=== PATIENT | female | born 1940 | race Caucasian/White ===

== ENCOUNTER 2021-01-29 23:00 | Inpatient (IN) | payer OTHER, MEDICARE ==
[2021-01-30] MEDS ORDERED: Fentanyl 100 MCG/2 ML VIAL ONE (01:22)
[2021-01-30] MEDS ORDERED: Ondansetron PF 4 MG/2 ML Vial ONE (01:22)
[2021-01-30 01:44] LABS: #Monocytes 0.8 thou/uL (0.11-0.59); #Neutrophils 8.4 thou/uL (1.40-6.50); %Basophils 0.2 % (0.0-1.0); %Eosinophils 0.4 % (0.0-10.0); %Neutrophils 81.3 % (42.0-75.0); Hemoglobin 17.2 g/dL (12.0-16.0); Mean Corpuscular HGB CONC 34.1 g/dL (32.0-36.0); Mean Corpuscular Hemoglobin 31.6 pg (27.0-31.0); Mean Corpuscular Volume 92.7 fL (78.0-98.0); Platelet Count 185 thou/uL (130-400); RBC Distribution Width 12.6 % (11.5-14.5); Red Blood Cell (RBC) Count 5.45 mill/uL (4.20-5.40); White Blood Cell (WBC) Count 10.3 thou/uL (4.8-10.8)
[2021-01-30 02:08] LABS: ALT (SGPT) 15 U/L (8-55); AST (SGOT) 29 U/L (5-34); Albumin 4.2 g/dL (3.4-4.8); Alkaline Phosphatase 159 U/L (40-110); Anion Gap 17 mmol/L (10-20); BUN (Urea Nitrogen) 14 mg/dL (9.8-20.1); Bilirubin, Total 1.5 mg/dL (0.2-1.2); Calc. Creatinine Clearance 0 mL/min (70-130); Calcium 9.3 mg/dL (7.8-10.44); Carbon Dioxide 21 mmol/L (23-31); Chloride 101 mmol/L (98-107); Globulin 3.6 g/dL (2.4-3.5); Glucose 126 mg/dL (83-110); Potassium 4.2 mmol/L (3.5-5.1); Protein, Total 7.8 g/dL (5.8-8.1); Sodium 135 mmol/L (136-145)
[2021-01-30 03:06] VITALS: BMI 24.3
[2021-01-30] MEDS ORDERED: Cyclobenzaprine 10 MG TAB PO PRN ×2 (04:03→08:00)
[2021-01-30] MEDS ORDERED: traMADol HCl 50 MG TAB PO PRN (04:04)
[2021-01-30] MEDS ORDERED: Ondansetron PF 4 MG/2 ML Vial IVP PRN (04:15)
[2021-01-30] MEDS ORDERED: Acetaminophen 325 MG TAB PO PRN (04:15)
[2021-01-30] MEDS ORDERED: Ondansetron ODT 4 MG TAB SL PRN (04:15)
[2021-01-30] MEDS ORDERED: Dextrose 50% Abboject 50 ML SYRINGE SLOW IVP PRN (07:07)
[2021-01-30] MEDS ORDERED: Dextrose 5% in Water 1,000 ML IV PRN (07:07)
[2021-01-30] MEDS ORDERED: hydrALAZINE 20 MG/ML VIAL SLOW IVP PRN (07:07)
[2021-01-30] MEDS ORDERED: Sodium Chloride 0.9% 1,000 ML IV SCH (07:15)
[2021-01-30] MEDS ORDERED: Rib Fracture Protocol PO SCH (07:15)
[2021-01-30] MEDS ORDERED: Polyethylene Glycol 3350 17 GM Packet PO SCH (09:00)
[2021-01-30] MEDS: Gabapentin 100 MG CAP PO SCH ×3 (09:03→23:24)
[2021-01-30] MEDS: Famotidine 20 MG TAB PO SCH ×2 (09:03→23:24)
[2021-01-30] MEDS: Senokot S 8.6-50 MG TAB PO SCH (09:04)
[2021-01-30 11:38] LABS: SARS-CoV-2 PCR by NAA Not Detected (NotDetected)
[2021-01-30] MEDS: Acetaminophen 500 MG TAB PO SCH ×3 (13:27→23:26)
[2021-01-30] MEDS: traMADol HCl 50 MG TAB PO SCH ×3 (13:28→23:27)
[2021-01-30] MEDS: Ibuprofen 600 MG TAB PO SCH ×2 (15:10→23:25)
[2021-01-31] MEDS: Senokot S 8.6-50 MG TAB PO SCH ×2 (00:02→08:57)
[2021-01-31] MEDS: Ibuprofen 600 MG TAB PO SCH (06:24)
[2021-01-31] MEDS: Acetaminophen 500 MG TAB PO SCH ×2 (06:24→11:58)
[2021-01-31] MEDS: traMADol HCl 50 MG TAB PO SCH ×2 (06:25→11:57)
[2021-01-31] MEDS: Gabapentin 100 MG CAP PO SCH (08:57)
[2021-01-31] MEDS: Famotidine 20 MG TAB PO SCH (08:57)
[2021-01-31 11:34] VITALS: BP 122/71; TEMP 97.6
== END 2021-01-31 13:55 | DRG 86 ==
LOC: ERS 23:00 → SJJU 01-30 01:28 → OBSVTOIN 01-30 16:46
PROVIDERS: ADMIT Surgery; ATTEND Surgery
DX: S02.85XA Fracture of orbit, unspecified, initial encounter for closed fracture (principal); S22.42XA Multiple fractures of ribs, left side, initial encounter for closed fracture; Z20.822 Contact with and (suspected) exposure to COVID-19; W01.190A Fall on same level from slipping, tripping and stumbling with subsequent striking against furniture, initial encounter; I10 Essential (primary) hypertension; E03.9 Hypothyroidism, unspecified; K58.9 Irritable bowel syndrome, unspecified; N32.81 Overactive bladder; F41.9 Anxiety disorder, unspecified; M81.0 Age-related osteoporosis without current pathological fracture; Z90.49 Acquired absence of other specified parts of digestive tract; Z90.710 Acquired absence of both cervix and uterus
CPT/HCPCS: 70450; 71250; 72125; 80053; 85025; 94640; 96374; 96375; G0378; J2405; J3010; J7620; U0003; U0005

== ENCOUNTER 2021-02-10 14:12 | Outpatient (CLI) | payer MEDICARE | END 2021-02-10 14:13 | disposition home or self-care (01) | LOC: BICRAD 14:12 | PROVIDERS: ATTEND Surgery | DX: S22.49XA Multiple fractures of ribs, unspecified side, initial encounter for closed fracture (principal); S22.009A Unspecified fracture of unspecified thoracic vertebra, initial encounter for closed fracture; M43.9 Deforming dorsopathy, unspecified | CPT/HCPCS: 71046 ==

== ENCOUNTER 2021-08-06 13:45 | Outpatient (CLI) | payer MEDICARE | END 2021-08-06 13:46 | disposition home or self-care (01) | LOC: ULT 13:45 | PROVIDERS: ATTEND Family Medicine | DX: I73.9 Peripheral vascular disease, unspecified (principal); R60.0 Localized edema | CPT/HCPCS: 93923 ==

== ENCOUNTER 2022-01-07 10:13 | Emergency (ER) | payer MEDICARE ==
[2022-01-07 11:05] LABS: Bilirubin Negative (Negative); Blood, Urine Negative (Negative); Glucose, Urine (Dipstick) Negative (Negative); Ketone, Urine 15 mg/dL (Negative); Leukocyte Negative (Negative); Nitrite Negative (Negative); Protein, Urine (Dipstick) Trace mg/dL (Neg-Trace); Specific Gravity, Urine 1.025 (1.005-1.030); pH, Urine 5.5 (5.0-9.0)
[2022-01-07 11:23] LABS: #Lymphocytes 0.9 thou/uL (1.20-3.40); #Monocytes 1.2 thou/uL (0.11-0.59); #Neutrophils 8.3 thou/uL (1.40-6.50); %Basophils 0.3 % (0.0-1.0); %Eosinophils 0.4 % (0.0-10.0); %Lymphocytes 8.8 % (21.0-51.0); %Monocytes 11.2 % (0.0-10.0); %Neutrophils 79.3 % (42.0-75.0); Hemoglobin 18.5 g/dL (12.0-16.0); Mean Corpuscular Hemoglobin 31.7 pg (27.0-31.0); Mean Corpuscular Volume 95.8 fL (78.0-98.0); Mean Platelet Volume 8.3 fL (7.4-10.4); Platelet Count 231 thou/uL (130-400); RBC Distribution Width 11.9 % (11.5-14.5); Red Blood Cell (RBC) Count 5.83 mill/uL (4.20-5.40); White Blood Cell (WBC) Count 10.4 thou/uL (4.8-10.8)
[2022-01-07 11:26] LABS: Clarity Clear (Clear)
[2022-01-07] MEDS ORDERED: Ketorolac Tromethamine 30 MG/ML VIAL ONE (11:35)
[2022-01-07 11:44] LABS: ALT (SGPT) 8 U/L (8-55); AST (SGOT) 15 U/L (5-34); Alkaline Phosphatase 107 U/L (40-110); Anion Gap 15 mmol/L (10-20); BUN (Urea Nitrogen) 13 mg/dL (9.8-20.1); Bilirubin, Total 2.3 mg/dL (0.2-1.2); Calc. Creatinine Clearance 0 mL/min (70-130); Calcium 8.9 mg/dL (7.8-10.44); Carbon Dioxide 22 mmol/L (23-31); Chloride 102 mmol/L (98-107); Globulin 3.1 g/dL (2.4-3.5); Glucose 113 mg/dL (83-110); Potassium 4.2 mmol/L (3.5-5.1); Protein, Total 7.1 g/dL (5.8-8.1); Sodium 135 mmol/L (136-145)
[2022-01-07] MEDS ORDERED: HYDROcodone/Acetaminophen 5/325 mg Tablet ONE (13:48)
== END 2022-01-07 14:00 | disposition home or self-care (01) ==
LOC: ERS 10:13
DX: M48.56XA Collapsed vertebra, not elsewhere classified, lumbar region, initial encounter for fracture (principal); I10 Essential (primary) hypertension; E03.9 Hypothyroidism, unspecified; M81.0 Age-related osteoporosis without current pathological fracture
CPT/HCPCS: 36415; 51701; 74176; 80053; 81003; 83605; 83690; 85025; 96374; J1885

== ENCOUNTER 2022-01-22 14:16 | Outpatient (CLI) | payer MEDICARE | END 2022-01-22 14:17 | disposition home or self-care (01) | LOC: BICRAD 14:16 | PROVIDERS: ATTEND Family Medicine | DX: S32.019G Unspecified fracture of first lumbar vertebra, subsequent encounter for fracture with delayed healing (principal); S32.029G Unspecified fracture of second lumbar vertebra, subsequent encounter for fracture with delayed healing; S32.039G Unspecified fracture of third lumbar vertebra, subsequent encounter for fracture with delayed healing; S22.059A Unspecified fracture of T5-T6 vertebra, initial encounter for closed fracture; S22.069A Unspecified fracture of T7-T8 vertebra, initial encounter for closed fracture; S22.079A Unspecified fracture of T9-T10 vertebra, initial encounter for closed fracture; S22.089A Unspecified fracture of T11-T12 vertebra, initial encounter for closed fracture; M43.8X4 Other specified deforming dorsopathies, thoracic region; M43.8X6 Other specified deforming dorsopathies, lumbar region | CPT/HCPCS: 72072; 72100 ==

== ENCOUNTER 2022-02-17 16:47 | Outpatient (CLI) | payer MEDICARE | END 2022-02-17 16:48 | disposition home or self-care (01) | LOC: RAD 16:47 | PROVIDERS: ATTEND Family Medicine | DX: M25.512 Pain in left shoulder (principal) ==

== ENCOUNTER 2022-04-29 10:43 | Inpatient (IN) | payer MEDICARE, MEDICAID ==
[2022-04-29] MEDS ORDERED: Aspirin Chewable 81 MG TAB ONE (11:25)
[2022-04-29 11:34] LABS: #Basophils 0.1 thou/uL (0.0-0.2); #Eosinphils 0.1 thou/uL (0.0-0.7); #Lymphocytes 1.6 thou/uL (1.20-3.40); #Monocytes 0.8 thou/uL (0.11-0.59); #Neutrophils 4.6 thou/uL (1.40-6.50); %Basophils 0.8 % (0.0-1.0); %Eosinophils 0.8 % (0.0-10.0); %Lymphocytes 22.7 % (21.0-51.0); %Neutrophils 64.7 % (42.0-75.0); Hemoglobin 17.4 g/dL (12.0-16.0); Mean Corpuscular HGB CONC 32.5 g/dL (32.0-36.0); Mean Corpuscular Hemoglobin 31.4 pg (27.0-31.0); Mean Corpuscular Volume 96.8 fL (78.0-98.0); Mean Platelet Volume 9.2 fL (7.4-10.4); Platelet Count 183 thou/uL (130-400); RBC Distribution Width 11.6 % (11.5-14.5); Red Blood Cell (RBC) Count 5.52 mill/uL (4.20-5.40); White Blood Cell (WBC) Count 7.1 thou/uL (4.8-10.8)
[2022-04-29 11:37] LABS: Prothrombin Time 13.2 sec (12.0-14.7)
[2022-04-29 11:38] LABS: PTT 29.8 sec (22.9-36.1)
[2022-04-29 11:47] LABS: ALT (SGPT) 10 U/L (8-55); AST (SGOT) 21 U/L (5-34); Albumin 4.2 g/dL (3.4-4.8); Alkaline Phosphatase 100 U/L (40-110); Anion Gap 17 mmol/L (10-20); BUN (Urea Nitrogen) 12 mg/dL (9.8-20.1); Bilirubin, Total 1.6 mg/dL (0.2-1.2); Calc. Creatinine Clearance 0 mL/min (70-130); Calcium 9.3 mg/dL (7.8-10.44); Carbon Dioxide 22 mmol/L (23-31); Chloride 98 mmol/L (98-107); Estimated GFR 78; Globulin 2.9 g/dL (2.4-3.5); Glucose 122 mg/dL (83-110); Potassium 3.9 mmol/L (3.5-5.1); Protein, Total 7.1 g/dL (5.8-8.1); Sodium 133 mmol/L (136-145)
[2022-04-29] MEDS ORDERED: Communication Order-Pharmacy FS PRN (13:22)
[2022-04-29 14:12] LABS: SARS-CoV-2 NAA Rapid Test Not Detected (NotDetected)
[2022-04-29 14:23] LABS: Bacteria/HPF None Seen HPF (None Seen); Bilirubin Negative (Negative); Blood, Urine Negative (Negative); Clarity Clear (Clear); Glucose, Urine (Dipstick) Normal (Negative); Ketone, Urine Negative (Negative); Leukocyte 25 Leu/uL (Negative); Nitrite Negative (Negative); Protein, Urine (Dipstick) Negative (Neg-Trace); RBC/HPF 0-3 HPF (0-3); Specific Gravity, Urine 1.007 (1.002-1.036); Squamous Epithelial None Seen HPF (0-3); Urobilinogen Normal mg/dL (Less than 2); WBC/HPF 0-3 HPF (0-3); pH, Urine 5.5 (5.0-9.0)
[2022-04-29] MEDS ORDERED: Enoxaparin Sodium 60 MG/0.6 ML SYRINGE SC SCH (15:30)
[2022-04-29] MEDS ORDERED: Enoxaparin Sodium 60 MG/0.6 ML SYRINGE ONE (17:04)
[2022-04-29] MEDS ORDERED: Ondansetron ODT 4 MG TAB SL PRN (19:00)
[2022-04-29] MEDS ORDERED: Ondansetron PF 4 MG/2 ML Vial IVP PRN (19:00)
[2022-04-29 19:54] VITALS: BMI 29.9
[2022-04-29] MEDS: Enoxaparin Sodium 60 MG/0.6 ML SYRINGE SC SCH (21:41)
[2022-04-29] MEDS: Atorvastatin Calcium 40 MG TAB PO SCH (21:41)
[2022-04-30] MEDS ORDERED: Nystatin Powder 15 GM BOT TOP PRN (00:37)
[2022-04-30] MEDS ORDERED: Metoprolol Tartrate 5 MG/5 ML VIAL IVP PRN (02:35)
[2022-04-30 05:36] LABS: Cardiac Risk 2.6 (Less than 4.5)
[2022-04-30] MEDS: Levothyroxine Sodium 25 MCG TAB PO SCH (05:53)
[2022-04-30] MEDS: Enoxaparin Sodium 60 MG/0.6 ML SYRINGE SC SCH ×2 (08:31→21:47)
[2022-04-30] MEDS: Furosemide 20 MG TAB PO SCH (08:33)
[2022-04-30] MEDS ORDERED: Enoxaparin Sodium 60 MG/0.6 ML SYRINGE SC SCH (09:00)
[2022-04-30] MEDS: Acetaminophen 325 MG TAB PO PRN ×2 (12:04→21:47)
[2022-04-30] MEDS: Metoprolol Tartrate 25 MG TAB PO SCH (21:47)
[2022-04-30] MEDS: Atorvastatin Calcium 40 MG TAB PO SCH (21:47)
[2022-05-01] MEDS: Levothyroxine Sodium 25 MCG TAB PO SCH (06:05)
[2022-05-01] MEDS: Furosemide 20 MG TAB PO SCH (10:12)
[2022-05-01] MEDS: Metoprolol Tartrate 25 MG TAB PO SCH ×2 (10:13→19:58)
[2022-05-01] MEDS: Enoxaparin Sodium 60 MG/0.6 ML SYRINGE SC SCH (10:13)
[2022-05-01] MEDS: Aspirin Chewable 81 MG TAB PO SCH (10:14)
[2022-05-01] MEDS: Acetaminophen 325 MG TAB PO PRN (19:58)
[2022-05-01] MEDS: Atorvastatin Calcium 40 MG TAB PO SCH (19:58)
[2022-05-01] MEDS: Apixaban 5 MG TAB PO SCH (19:58)
[2022-05-02] MEDS: Levothyroxine Sodium 25 MCG TAB PO SCH (05:36)
[2022-05-02 05:54] LABS: Hemoglobin 16.2 g/dL (12.0-16.0); Platelet Count 162 thou/uL (130-400)
[2022-05-02] MEDS: Aspirin Chewable 81 MG TAB PO SCH (09:57)
[2022-05-02] MEDS: Furosemide 20 MG TAB PO SCH (09:58)
[2022-05-02] MEDS: Apixaban 5 MG TAB PO SCH (09:58)
[2022-05-02] MEDS: Metoprolol Tartrate 25 MG TAB PO SCH (09:58)
[2022-05-02 11:39] VITALS: BP 127/81; TEMP 98.1
== END 2022-05-02 16:45 | disposition home health service (06) | DRG 69 ==
LOC: ERS 10:43 → ERHOLD 12:44 → NEURO 18:41 → OBSVTOIN 04-30 12:36
PROVIDERS: ADMIT Internal Medicine; ATTEND Internal Medicine
DX: G45.9 Transient cerebral ischemic attack, unspecified (principal); Z66 Do not resuscitate; Z20.822 Contact with and (suspected) exposure to COVID-19; I47.1 Supraventricular tachycardia; I48.92 Unspecified atrial flutter; I48.91 Unspecified atrial fibrillation; E03.9 Hypothyroidism, unspecified; I10 Essential (primary) hypertension; F41.9 Anxiety disorder, unspecified; M81.0 Age-related osteoporosis without current pathological fracture; K58.9 Irritable bowel syndrome, unspecified; N32.81 Overactive bladder; D75.839 Thrombocytosis, unspecified; E78.5 Hyperlipidemia, unspecified; Z79.899 Other long term (current) drug therapy; Z98.890 Other specified postprocedural states; Z90.710 Acquired absence of both cervix and uterus; Z79.890 Hormone replacement therapy
CPT/HCPCS: 36415; 36416; 70450; 71045; 80053; 80061; 81003; 81015; 84443; 84484; 85014; 85018; 85025; 85049; 85610; 85730; 93005; 93306; 93880; 96372; 96374; G0378; J1650; U0002

== ENCOUNTER 2022-08-05 08:06 | Inpatient (IN) | payer MEDICARE, MEDICAID ==
[2022-08-05 09:01] LABS: Hemoglobin 18.1 g/dL (12.0-16.0); Mean Corpuscular HGB CONC 33.8 g/dL (32.0-36.0); Mean Corpuscular Hemoglobin 31.9 pg (27.0-31.0); Mean Corpuscular Volume 94.4 fl (78.0-98.0); Mean Platelet Volume 9.9 fL (7.4-10.4); Platelet Count 129 10x3/uL (130-400); RBC Distribution Width 11.8 % (11.5-14.5); Red Blood Cell (RBC) Count 5.66 mill/uL (4.20-5.40); White Blood Cell (WBC) Count 4.1 10x3/uL (4.8-10.8)
[2022-08-05 09:15] LABS: ALT (SGPT) 12 U/L (8-55); AST (SGOT) 32 U/L (5-34); Albumin 4.2 g/dL (3.4-4.8); Alkaline Phosphatase 106 U/L (40-110); Anion Gap 17 mmol/L (10-20); BUN (Urea Nitrogen) 11 mg/dL (9.8-20.1); Bilirubin, Total 1.4 mg/dL (0.2-1.2); Calc. Creatinine Clearance 0 mL/min (70-130); Calcium 9.1 mg/dL (7.8-10.44); Carbon Dioxide 23 mmol/L (23-31); Chloride 95 mmol/L (98-107); Estimated GFR 84; Globulin 3.2 g/dL (2.4-3.5); Glucose 89 mg/dL (83-110); Potassium 3.8 mmol/L (3.5-5.1); Protein, Total 7.4 g/dL (5.8-8.1); Sodium 131 mmol/L (136-145)
[2022-08-05 09:23] LABS: PTT 32.1 sec (22.9-36.1); Prothrombin Time 13.8 sec (12.0-14.7)
[2022-08-05] MEDS ORDERED: Iopamidol-370 76% 500 ML 1 ML ONE (10:03)
[2022-08-05 10:07] LABS: Band 6 % (5-11); Lymphocytes 13 % (21-51); MDiff Complete? YES; Monocytes 10 % (0-10); Neutrophil 50 % (42-75); Platelet Morphology Comment Appears Decreased; RBC Morphology Normal; Reactive Lymphocytes 21 % (0-10)
[2022-08-05] MEDS ORDERED: Aspirin 81 mg Enteric Coated Tablet PO SCH (11:45)
[2022-08-05] MEDS ORDERED: Ondansetron PF 4 MG/2 ML Vial IVP PRN (14:01)
[2022-08-05] MEDS ORDERED: Ondansetron ODT 4 MG TAB PO PRN (14:01)
[2022-08-05] MEDS: Atorvastatin Calcium 40 MG TAB PO SCH (21:26)
[2022-08-06 05:48] VITALS: BMI 23.3
[2022-08-06] MEDS: Acetaminophen 325 MG TAB PO PRN ×3 (05:56→20:26)
[2022-08-06 06:43] LABS: Hemoglobin 17.1 g/dL (12.0-16.0); Mean Corpuscular HGB CONC 32.4 g/dL (32.0-36.0); Mean Corpuscular Volume 95.6 fl (78.0-98.0); Mean Platelet Volume 9.5 fL (7.4-10.4); Platelet Count 123 10x3/uL (130-400); RBC Distribution Width 11.8 % (11.5-14.5); Red Blood Cell (RBC) Count 5.52 mill/uL (4.20-5.40); White Blood Cell (WBC) Count 4.3 10x3/uL (4.8-10.8)
[2022-08-06 06:54] LABS: Anion Gap 15 mmol/L (10-20); BUN (Urea Nitrogen) 11 mg/dL (9.8-20.1); Calc. Creatinine Clearance 61 mL/min (70-130); Calcium 8.6 mg/dL (7.8-10.44); Carbon Dioxide 23 mmol/L (23-31); Cardiac Risk 2.7 (Less than 4.5); Chloride 94 mmol/L (98-107); Cholesterol 136 mg/dl (< 200 Desired); Estimated GFR 86; Glucose 107 mg/dL (83-110); HDL Cholesterol 50 mg/dL (>60 Neg Risk); LDL Cholesterol, Calculated 74 mg/dL; Potassium 3.8 mmol/L (3.5-5.1); Sodium 128 mmol/L (136-145); Triglycerides 61 mg/dL (Less than 150)
[2022-08-06 09:32] LABS: Band 6 % (5-11); Lymphocytes 7 % (21-51); MDiff Complete? YES; Monocytes 6 % (0-10); Neutrophil 57 % (42-75); Platelet Morphology Comment Appears Decreased; RBC Morphology Normal; Reactive Lymphocytes 24 % (0-10)
[2022-08-06] MEDS: Aspirin 81 mg Enteric Coated Tablet PO SCH (09:49)
[2022-08-06] MEDS: Metoprolol Tartrate 25 MG TAB PO SCH (20:27)
[2022-08-06] MEDS: Atorvastatin Calcium 40 MG TAB PO SCH (20:27)
[2022-08-06] MEDS: Apixaban 5 MG TAB PO SCH (20:27)
[2022-08-06] MEDS ORDERED: Atorvastatin Calcium 40 MG TAB PO SCH (21:00)
[2022-08-07 05:27] LABS: #Lymphocytes 0.9 thou/uL (1.20-3.40); #Monocytes 0.7 thou/uL (0.11-0.59); #Neutrophils 3.1 thou/uL (1.40-6.50); %Basophils 0.3 % (0.0-1.0); %Eosinophils 0.3 % (0.0-10.0); %Lymphocytes 19.2 % (21.0-51.0); %Monocytes 14.1 % (0.0-10.0); %Neutrophils 66.2 % (42.0-75.0); Hemoglobin 17.5 g/dL (12.0-16.0); Mean Corpuscular HGB CONC 32.5 g/dL (32.0-36.0); Mean Corpuscular Hemoglobin 31.2 pg (27.0-31.0); Mean Corpuscular Volume 95.9 fl (78.0-98.0); Mean Platelet Volume 9.6 fL (7.4-10.4); Platelet Count 128 10x3/uL (130-400); RBC Distribution Width 11.8 % (11.5-14.5); White Blood Cell (WBC) Count 4.7 10x3/uL (4.8-10.8)
[2022-08-07 05:43] LABS: Anion Gap 14 mmol/L (10-20); BUN (Urea Nitrogen) 16 mg/dL (9.8-20.1); Calc. Creatinine Clearance 55 mL/min (70-130); Calcium 8.7 mg/dL (7.8-10.44); Carbon Dioxide 24 mmol/L (23-31); Chloride 94 mmol/L (98-107); Estimated GFR 79; Glucose 124 mg/dL (83-110); Potassium 3.4 mmol/L (3.5-5.1); Sodium 129 mmol/L (136-145)
[2022-08-07] MEDS ORDERED: Levothyroxine Sodium 25 MCG TAB PO SCH (09:00)
[2022-08-07] MEDS ORDERED: Furosemide 20 MG TAB PO SCH (09:00)
[2022-08-07] MEDS: Aspirin 81 mg Enteric Coated Tablet PO SCH (09:49)
[2022-08-07] MEDS: Metoprolol Tartrate 25 MG TAB PO SCH ×2 (09:50→19:52)
[2022-08-07] MEDS: Apixaban 5 MG TAB PO SCH ×2 (09:50→19:52)
[2022-08-07] MEDS: Atorvastatin Calcium 40 MG TAB PO SCH (19:52)
[2022-08-07 20:43] VITALS: BP 117/69; TEMP 98.3
== END 2022-08-07 21:25 | DRG 543 ==
LOC: ERS 08:06 → ERHOLD 13:46 → NEURO 19:30 → OBSVTOIN 08-06 14:33
PROVIDERS: ADMIT Hospitalist; ATTEND Emergency Medicine
DX: M48.56XA Collapsed vertebra, not elsewhere classified, lumbar region, initial encounter for fracture (principal); G81.94 Hemiplegia, unspecified affecting left nondominant side; I47.1 Supraventricular tachycardia; I10 Essential (primary) hypertension; E78.5 Hyperlipidemia, unspecified; E03.9 Hypothyroidism, unspecified; M81.0 Age-related osteoporosis without current pathological fracture; I48.91 Unspecified atrial fibrillation; Z86.73 Personal history of transient ischemic attack (TIA), and cerebral infarction without residual deficits; Z90.49 Acquired absence of other specified parts of digestive tract; Z98.890 Other specified postprocedural states; Z79.01 Long term (current) use of anticoagulants; Z79.899 Other long term (current) drug therapy; Z90.710 Acquired absence of both cervix and uterus; Z20.822 Contact with and (suspected) exposure to COVID-19
CPT/HCPCS: 36415; 70450; 70496; 70498; 71045; 72020; 80048; 80053; 80061; 84484; 85025; 85610; 85730; 93005; G0378; Q9967; U0003; U0005

== ENCOUNTER 2023-03-20 12:04 | Emergency (ER) | payer OTHER, MEDICAID ==
[2023-03-20] MEDS ORDERED: Acetaminophen 325 MG TAB ONE (12:22)
== END 2023-03-20 13:47 | disposition home or self-care (01) ==
LOC: ERS 12:04
DX: S22.32XA Fracture of one rib, left side, initial encounter for closed fracture (principal); M25.512 Pain in left shoulder; I10 Essential (primary) hypertension; E03.9 Hypothyroidism, unspecified; Z79.899 Other long term (current) drug therapy; W08.XXXA Fall from other furniture, initial encounter

== ENCOUNTER 2023-04-23 12:38 | Inpatient (IN) | payer OTHER, MEDICAID ==
[2023-04-23 13:43] LABS: #Basophils 0.1 thou/uL (0.0-0.2); #Monocytes 0.7 thou/uL (0.11-0.59); %Basophils 0.7 % (0.0-1.0); %Eosinophils 0.4 % (0.0-10.0); %Lymphocytes 28.6 % (21.0-51.0); %Monocytes 9.8 % (0.0-10.0); %Neutrophils 59.3 % (42.0-75.0); Hematocrit 51.6 % (36.0-47.0); Hemoglobin 17.5 g/dL (12.0-16.0); Mean Corpuscular HGB CONC 33.9 g/dL (32.0-36.0); Mean Corpuscular Hemoglobin 31.6 pg (27.0-31.0); Mean Corpuscular Volume 93.1 fl (78.0-98.0); Mean Platelet Volume 10.8 fL (7.4-10.4); Platelet Count 190 10x3/uL (130-400); RBC Distribution Width 13.3 % (11.5-14.5); Red Blood Cell (RBC) Count 5.54 mill/uL (4.20-5.40); White Blood Cell (WBC) Count 6.8 10x3/uL (4.8-10.8)
[2023-04-23 14:11] LABS: ALT (SGPT) 9 U/L (8-55); AST (SGOT) 20 U/L (5-34); Alkaline Phosphatase 142 U/L (40-110); Anion Gap 16 mmol/L (10-20); BUN (Urea Nitrogen) 18 mg/dL (9.8-20.1); Bilirubin, Total 1.3 mg/dL (0.2-1.2); Calc. Creatinine Clearance 0 mL/min (70-130); Carbon Dioxide 25 mmol/L (23-31); Chloride 97 mmol/L (98-107); Estimated GFR 73; Globulin 2.8 g/dL (2.4-3.5); Glucose 139 mg/dL (83-110); Potassium 3.6 mmol/L (3.5-5.1); Protein, Total 6.8 g/dL (5.8-8.1); Sodium 134 mmol/L (136-145)
[2023-04-23 14:16] LABS: Troponin I Less than 0.010 ng/mL (< 0.028)
[2023-04-23] MEDS ORDERED: Acetaminophen 500 MG TAB ONE ×2 (14:44→14:50)
[2023-04-23] MEDS ORDERED: Morphine 4 MG/ML VIAL ONE (15:41)
[2023-04-23] MEDS ORDERED: Ondansetron PF 4 MG/2 ML Vial IVP PRN ×2 (17:21→17:30)
[2023-04-23] MEDS ORDERED: hydrALAZINE 20 MG/ML VIAL SLOW IVP PRN (17:21)
[2023-04-23] MEDS ORDERED: TETANUS, DIPHTHERIA TOX,ADULT (TDVAX) 0.5 ML VIAL IM ONE (17:21)
[2023-04-23] MEDS ORDERED: Ipratropium/Albuterol 3 ML NEB NEB PRN (17:21)
[2023-04-23] MEDS ORDERED: Dextrose 50% Abboject 50 ML SYRINGE SLOW IVP PRN (17:21)
[2023-04-23] MEDS ORDERED: Glucagon 1 MG/ML KIT IM PRN (17:21)
[2023-04-23] MEDS ORDERED: Dextrose 5% in Water 1,000 ML IV PRN (17:21)
[2023-04-23] MEDS ORDERED: Acetaminophen 325 MG TAB PO PRN (17:30)
[2023-04-23] MEDS ORDERED: Ondansetron ODT 4 MG TAB SL PRN (17:30)
[2023-04-23 17:45] VITALS: BMI 24.3
[2023-04-23] MEDS: traMADol HCl 50 MG TAB PO PRN (17:59)
[2023-04-23] MEDS: Sodium Chloride 0.9% 1,000 ML IV SCH (18:00)
[2023-04-23] MEDS: Famotidine/PF 20 mg/2ml Vial SLOW IVP SCH (21:14)
[2023-04-23] MEDS: Acetaminophen 325 MG TAB PO SCH (21:15)
[2023-04-23] MEDS: Morphine 2 MG/ML VIAL SLOW IVP PRN (21:15)
[2023-04-23 22:33] LABS: Bacteria/HPF None Seen HPF (None Seen); Bilirubin Negative (Negative); Blood, Urine Negative (Negative); Clarity Clear (Clear); Glucose, Urine (Dipstick) Normal (Negative); Ketone, Urine Negative (Negative); Leukocyte 75 Leu/uL (Negative); Nitrite Negative (Negative); Protein, Urine (Dipstick) Negative (Neg-Trace); RBC/HPF 0-3 HPF (0-3); Specific Gravity, Urine 1.019 (1.002-1.036); Squamous Epithelial 0-3 HPF (0-3); Urobilinogen Normal mg/dL (Less than 2); WBC/HPF 0-3 HPF (0-3)
[2023-04-24] MEDS: Acetaminophen 325 MG TAB PO SCH ×5 (02:15→20:04)
[2023-04-24] MEDS: Morphine 2 MG/ML VIAL SLOW IVP PRN ×3 (02:59→09:14)
[2023-04-24] MEDS: Famotidine/PF 20 mg/2ml Vial SLOW IVP SCH ×2 (09:15→20:03)
[2023-04-24] MEDS: Sodium Chloride 0.9% 1,000 ML IV SCH (14:04)
[2023-04-24] MEDS: traMADol HCl 50 MG TAB PO PRN (20:03)
[2023-04-25] MEDS: Acetaminophen 325 MG TAB PO SCH ×4 (02:31→19:56)
[2023-04-25 07:16] LABS: #Eosinphils 0.1 thou/uL (0.0-0.7); #Monocytes 1.1 thou/uL (0.11-0.59); #Neutrophils 9.2 thou/uL (1.40-6.50); %Basophils 0.4 % (0.0-1.0); %Eosinophils 0.4 % (0.0-10.0); %Lymphocytes 6.3 % (21.0-51.0); %Monocytes 10.1 % (0.0-10.0); %Neutrophils 82.4 % (42.0-75.0); Hematocrit 42.4 % (36.0-47.0); Mean Corpuscular Hemoglobin 31.7 pg (27.0-31.0); Mean Corpuscular Volume 96.1 fl (78.0-98.0); Mean Platelet Volume 11.1 fL (7.4-10.4); Platelet Count 160 10x3/uL (130-400); RBC Distribution Width 13.4 % (11.5-14.5); Red Blood Cell (RBC) Count 4.41 mill/uL (4.20-5.40); White Blood Cell (WBC) Count 11.2 10x3/uL (4.8-10.8)
[2023-04-25] MEDS ORDERED: CEFAZOLIN 2 GM in Sodium Chloride 0.9% 100 ML IVPB SCH (07:30)
[2023-04-25 07:37] LABS: Anion Gap 12 mmol/L (10-20); BUN (Urea Nitrogen) 27 mg/dL (9.8-20.1); Calc. Creatinine Clearance 49 mL/min (70-130); Calcium 8.8 mg/dL (7.8-10.44); Carbon Dioxide 28 mmol/L (23-31); Chloride 101 mmol/L (98-107); Estimated GFR 66; Glucose 119 mg/dL (83-110); Potassium 4.8 mmol/L (3.5-5.1); Sodium 136 mmol/L (136-145)
[2023-04-25] MEDS ORDERED: Promethazine HCl 25 MG/ML VIAL IM PRN (07:55)
[2023-04-25] MEDS ORDERED: Ondansetron HCl/PF 4 MG/2 ML Vial IVP PRN (07:55)
[2023-04-25] MEDS ORDERED: Scopolamine 1.5 mg/72 hour Patch ONE (08:02)
[2023-04-25] MEDS ORDERED: Dexamethasone 20 MG/5 ML VIAL ONE (08:17)
[2023-04-25] MEDS ORDERED: Ondansetron PF 4 MG/2 ML Vial ONE (08:17)
[2023-04-25] MEDS ORDERED: Lidocaine 1% PF 5 ML VIAL ONE (08:17)
[2023-04-25] MEDS ORDERED: PROPOFOL 200 MG/20 ML VIAL ONE (08:17)
[2023-04-25] MEDS ORDERED: PHENYLEPHRINE-NS 100 MCG/ML 10 ML SYRINGE ONE (08:17)
[2023-04-25] MEDS ORDERED: CEFAZOLIN 2 GM VIAL ONE (08:33)
[2023-04-25] MEDS ORDERED: Sodium Chloride 0.9% 100 ML ONE (08:33)
[2023-04-25] MEDS: Famotidine/PF 20 mg/2ml Vial SLOW IVP SCH (08:56)
[2023-04-25] MEDS ORDERED: fentaNYL 50 mcg/mL 1 mL Vial ONE (09:16)
[2023-04-25] MEDS: Sodium Chloride 0.9% 1,000 ML IV SCH ×2 (15:00→23:28)
[2023-04-25] MEDS: Metoprolol Tartrate 25 MG TAB PO SCH (19:56)
[2023-04-25] MEDS: CEFAZOLIN 2 GM in Sodium Chloride 0.9% 100 ML IVPB SCH (20:03)
[2023-04-25] MEDS: traMADol HCl 50 MG TAB PO PRN (23:28)
[2023-04-26] MEDS: Acetaminophen 325 MG TAB PO SCH ×4 (02:16→20:21)
[2023-04-26] MEDS: CEFAZOLIN 2 GM in Sodium Chloride 0.9% 100 ML IVPB SCH (02:17)
[2023-04-26 05:09] LABS: #Monocytes 1.4 thou/uL (0.11-0.59); #Neutrophils 9.4 thou/uL (1.40-6.50); %Basophils 0.2 % (0.0-1.0); %Eosinophils 0.1 % (0.0-10.0); %Monocytes 11.6 % (0.0-10.0); %Neutrophils 79.6 % (42.0-75.0); Hematocrit 38.6 % (36.0-47.0); Hemoglobin 12.6 g/dL (12.0-16.0); Mean Corpuscular HGB CONC 32.6 g/dL (32.0-36.0); Mean Corpuscular Hemoglobin 31.6 pg (27.0-31.0); Mean Corpuscular Volume 96.7 fl (78.0-98.0); Mean Platelet Volume 11.7 fL (7.4-10.4); Platelet Count 171 10x3/uL (130-400); RBC Distribution Width 13.2 % (11.5-14.5); Red Blood Cell (RBC) Count 3.99 mill/uL (4.20-5.40); White Blood Cell (WBC) Count 11.8 10x3/uL (4.8-10.8)
[2023-04-26 05:36] LABS: Anion Gap 11 mmol/L (10-20); BUN (Urea Nitrogen) 23 mg/dL (9.8-20.1); Calc. Creatinine Clearance 55 mL/min (70-130); Calcium 8.6 mg/dL (7.8-10.44); Carbon Dioxide 29 mmol/L (23-31); Chloride 104 mmol/L (98-107); Estimated GFR 76; Glucose 117 mg/dL (83-110); Potassium 5.1 mmol/L (3.5-5.1); Sodium 139 mmol/L (136-145)
[2023-04-26] MEDS: Levothyroxine Sodium 25 MCG TAB PO SCH (05:50)
[2023-04-26] MEDS: Metoprolol Tartrate 25 MG TAB PO SCH ×2 (08:33→20:22)
[2023-04-26] MEDS: Furosemide 20 MG TAB PO SCH (08:33)
[2023-04-26] MEDS ORDERED: Amlodipine 5 MG TAB PO SCH (09:00)
[2023-04-26] MEDS: Apixaban 2.5 MG TAB PO SCH ×2 (11:03→20:21)
[2023-04-26] MEDS: traMADol HCl 50 MG TAB PO PRN (12:57)
[2023-04-27] MEDS: Acetaminophen 325 MG TAB PO SCH ×4 (03:41→20:41)
[2023-04-27] MEDS: Levothyroxine Sodium 25 MCG TAB PO SCH (05:37)
[2023-04-27 05:58] LABS: #Eosinphils 0.1 thou/uL (0.0-0.7); #Neutrophils 6.1 thou/uL (1.40-6.50); %Basophils 0.5 % (0.0-1.0); %Eosinophils 1.3 % (0.0-10.0); %Lymphocytes 13.9 % (21.0-51.0); %Monocytes 11.5 % (0.0-10.0); %Neutrophils 72.1 % (42.0-75.0); Hematocrit 36.9 % (36.0-47.0); Hemoglobin 12.2 g/dL (12.0-16.0); Mean Corpuscular HGB CONC 33.1 g/dL (32.0-36.0); Mean Corpuscular Hemoglobin 31.9 pg (27.0-31.0); Mean Corpuscular Volume 96.3 fl (78.0-98.0); Mean Platelet Volume 12.3 fL (7.4-10.4); Platelet Count 157 10x3/uL (130-400); RBC Distribution Width 13.4 % (11.5-14.5); Red Blood Cell (RBC) Count 3.83 mill/uL (4.20-5.40); White Blood Cell (WBC) Count 8.5 10x3/uL (4.8-10.8)
[2023-04-27] MEDS: Senokot 8.6 MG TAB PO SCH (09:36)
[2023-04-27] MEDS: Polyethylene Glycol 3350 17 GM Packet PO SCH (09:37)
[2023-04-27] MEDS: Apixaban 5 MG TAB PO SCH ×2 (09:37→20:41)
[2023-04-27] MEDS: Amlodipine 5 MG TAB PO SCH (09:38)
[2023-04-27] MEDS: traMADol HCl 50 MG TAB PO PRN (09:48)
[2023-04-27] MEDS: Metoprolol Tartrate 25 MG TAB PO SCH ×2 (18:58→20:42)
[2023-04-27] MEDS ORDERED: Atorvastatin Calcium 40 MG TAB PO SCH (21:00)
[2023-04-28] MEDS: Acetaminophen 325 MG TAB PO SCH ×3 (02:32→16:00)
[2023-04-28] MEDS: Levothyroxine Sodium 25 MCG TAB PO SCH (04:57)
[2023-04-28 07:39] LABS: #Eosinphils 0.1 thou/uL (0.0-0.7); #Monocytes 1.1 thou/uL (0.11-0.59); #Neutrophils 6.3 thou/uL (1.40-6.50); %Basophils 0.3 % (0.0-1.0); %Eosinophils 1.1 % (0.0-10.0); %Lymphocytes 14.3 % (21.0-51.0); %Monocytes 12.4 % (0.0-10.0); %Neutrophils 71.2 % (42.0-75.0); Hematocrit 37.5 % (36.0-47.0); Hemoglobin 12.5 g/dL (12.0-16.0); Mean Corpuscular HGB CONC 33.3 g/dL (32.0-36.0); Mean Corpuscular Hemoglobin 31.5 pg (27.0-31.0); Mean Corpuscular Volume 94.5 fl (78.0-98.0); Mean Platelet Volume 11.5 fL (7.4-10.4); Platelet Count 200 10x3/uL (130-400); RBC Distribution Width 13.2 % (11.5-14.5); Red Blood Cell (RBC) Count 3.97 mill/uL (4.20-5.40); White Blood Cell (WBC) Count 8.8 10x3/uL (4.8-10.8)
[2023-04-28 08:01] LABS: Anion Gap 12 mmol/L (10-20); BUN (Urea Nitrogen) 16 mg/dL (9.8-20.1); Calc. Creatinine Clearance 70 mL/min (70-130); Calcium 8.4 mg/dL (7.8-10.44); Carbon Dioxide 26 mmol/L (23-31); Chloride 99 mmol/L (98-107); Estimated GFR 88; Glucose 110 mg/dL (83-110); Magnesium 1.6 mg/dL (1.6-2.6); Phosphorus 2.3 mg/dL (2.3-4.7); Sodium 133 mmol/L (136-145)
[2023-04-28] MEDS: Metoprolol Tartrate 25 MG TAB PO SCH (09:21)
[2023-04-28] MEDS: Apixaban 5 MG TAB PO SCH (09:21)
[2023-04-28] MEDS: Amlodipine 5 MG TAB PO SCH (09:22)
[2023-04-28] MEDS: traMADol HCl 50 MG TAB PO PRN (09:22)
[2023-04-28] MEDS: Senokot 8.6 MG TAB PO SCH (09:22)
[2023-04-28] MEDS: Furosemide 20 MG TAB PO SCH (09:23)
[2023-04-28] MEDS: Polyethylene Glycol 3350 17 GM Packet PO SCH (09:23)
[2023-04-28 11:32] VITALS: BP 124/75; TEMP 98.3
== END 2023-04-28 18:15 | DRG 481 ==
LOC: ERS 12:38 → SURG A 16:26
PROVIDERS: ADMIT Surgery; ATTEND Surgery
PROC: 0QS706Z Reposition Left Upper Femur with Intramedullary Internal Fixation Device, Open Approach (ICD-10-PCS; principal; 2023-04-25)
PROC: 3E033XZ Introduction of Vasopressor into Peripheral Vein, Percutaneous Approach (ICD-10-PCS; 2023-04-25)
DX: S72.142A Displaced intertrochanteric fracture of left femur, initial encounter for closed fracture (principal); S22.42XA Multiple fractures of ribs, left side, initial encounter for closed fracture; I48.91 Unspecified atrial fibrillation; M25.512 Pain in left shoulder; Z51.5 Encounter for palliative care; Z66 Do not resuscitate; M81.0 Age-related osteoporosis without current pathological fracture; M41.9 Scoliosis, unspecified; I10 Essential (primary) hypertension; E03.9 Hypothyroidism, unspecified; K58.9 Irritable bowel syndrome, unspecified; N32.81 Overactive bladder; I45.10 Unspecified right bundle-branch block; G89.11 Acute pain due to trauma; R09.02 Hypoxemia; Z90.49 Acquired absence of other specified parts of digestive tract; Z90.710 Acquired absence of both cervix and uterus; Z86.73 Personal history of transient ischemic attack (TIA), and cerebral infarction without residual deficits; F03.90 Unspecified dementia, unspecified severity, without behavioral disturbance, psychotic disturbance, mood disturbance, and anxiety; W18.30XA Fall on same level, unspecified, initial encounter; Z79.01 Long term (current) use of anticoagulants; Z79.899 Other long term (current) drug therapy; Z79.890 Hormone replacement therapy; R41.0 Disorientation, unspecified
CPT/HCPCS: 36415; 70450; 72125; 80048; 80053; 81001; 83735; 84100; 84484; 85025; 90714; 93005; 96374; C1713; J1100; J2270; J2272; J2405; J2704; J3010; J3490; J7050; S0028

== ENCOUNTER 2025-05-16 15:26 | Outpatient (CLI) | payer OTHER | END 2025-05-16 15:27 | disposition home or self-care (01) | LOC: BICRAD 15:26 | PROVIDERS: ATTEND Family Medicine | DX: G44.86 Cervicogenic headache (principal) | CPT/HCPCS: 36415; 72040; 80053; 82306; 82607; 84439; 84443; 84480; 85025; 86140 ==